=== PATIENT | male | born 1990 | race Two or more races ===

== ENCOUNTER 2016-11-23 11:56 | Emergency (ER) | payer SELFPAY ==
[~2016-11-23] VITALS: Ht 190.5 cm; Wt 113.4 kg
[2016-11-23 12:29] LABS: BASO % 0 % (0-3); EOS % 0 % (0-3); HEMATOCRIT 45.5 % (39.0-53.0); HEMOGLOBIN 15.5 g/dL (13.0-17.5); LYMPH # 1.3 x10^3/uL (1.0-4.8); LYMPH % 20 % (24-48); MEAN CORPUSCULAR HEMOGLOBIN 32 pg (25-35); MEAN CORPUSCULAR HGB CONC 34 g/dL (31-37); MEAN CORPUSCULAR VOLUME 93 fL (79-100); MONO # 0.5 x10^3/uL (0.0-1.1); MONO % 7 % (0-9); NEUT # 4.9 x10^3uL (1.8-7.7); NEUT % 73 % (31-73); PLATELET COUNT 317 x10^3/uL (140-400); RED CELL DISTRIBUTION WIDTH 12.7 % (11.5-14.5); WHITE BLOOD COUNT 6.7 x10^3/uL (4.0-11.0)
[2016-11-23] MEDS ORDERED: IV NORMAL SALINE 1,000ML 1,000 ML IV SCH (12:30)
--- NOTE | 2016-11-23 12:34 | PHYS DOC ---
Adult General Chief Complaint Chief Complaint: NAUSEA/VOMITING HPI HPI Patient is a 26 year old male who presents with complaint of nausea, vomiting, and lightheadedness. Patient states that his symptoms started 3-4 days ago. 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 The patient states that he has been having low-grade fever yesterday and has had persistent lightheadedness and nausea. Patient states that he had a few episodes of vomiting today. Patient does admit that he has been around family members who have had viral gastroenteritis symptoms over the past couple weeks. Patient denies any chest pain, abdominal pain, bloody stools, or diarrhea at this time. Patient denies any significant past medical history. Patient has taken no medications to help with symptoms. Due to worsening symptoms the patient came to the emergency department for evaluation today. Review of Systems Review of Systems Constitutional: Lightheadedness, generalized fatigue, fever [] Eyes: Denies change in visual acuity, redness, or eye pain [] HENT: Denies nasal congestion or sore throat [] Respiratory: Denies cough or shortness of breath [] Cardiovascular: Denies chest pain or edema [] GI: Nausea, vomiting, denies abdominal pain, bloody stools or diarrhea [] : Denies dysuria or hematuria [] Musculoskeletal: Denies back pain or joint pain [] Integument: Denies rash or skin lesions [] Neurologic: Denies headache, focal weakness or sensory changes [] Current Medications Current Medications Current Medications Medications (Trade) Dose Ordered Sig/Yazan Start Time Stop Time Status Last Admin Dose Admin Prochlorperazine Edisylate (Compazine) 10 mg 1X ONCE 11/23/16 12:45 11/23/16 12:46 11/23/16 12:24 10 MG Sodium Chloride 1,000 ml @ 1,000 mls/hr Q1H 11/23/16 12:30 11/23/16 13:29 11/23/16 12:23 1,000 MLS/HR Allergies Allergies Allergies Coded Allergies Type Severity Reaction Last Updated Verified No Known Drug Allergies 11/23/16 No Physical Exam Physical Exam Constitutional: Alert, afebrile, appears mildly anxious. [] HENT: Normocephalic, atraumatic, bilateral external ears normal, oropharynx moist, no oral exudates, nose normal. [] Eyes: PERRLA, EOMI, conjunctiva normal, no discharge. [] Neck: Normal range of motion, no tenderness, supple, no stridor. [] Cardiovascular: Tachycardia, regular rhythm, no murmur [] Lungs & Thorax: Bilateral breath sounds clear to auscultation [] Abdomen: Bowel sounds normal, soft, no tenderness, no masses, no pulsatile masses. [] Skin: Warm, dry, no erythema, no rash. [] Back: No tenderness, no CVA tenderness. [] Extremities: No tenderness, no cyanosis, no clubbing, ROM intact, no edema. [] Neurologic: Alert and oriented X 3, normal motor function, normal sensory function, no focal deficits noted. [] Current Patient Data Vital Signs Vital Signs Date Time Temp Pulse Resp B/P (MAP) Pulse Ox O2 Delivery O2 Flow Rate FiO2 11/23/16 13:53 98 18 139/89 (106) 95 Room Air 11/23/16 11:56 98.2 Lab Results Laboratory Tests Test 11/23/16 12:15 White Blood Count 6.7 x10^3/uL (4.0-11.0) Red Blood Count 4.90 x10^6/uL (4.30-5.70) Hemoglobin 15.5 g/dL (13.0-17.5) Hematocrit 45.5 % (39.0-53.0) Mean Corpuscular Volume 93 fL (79-100) Mean Corpuscular Hemoglobin 32 pg (25-35) Mean Corpuscular Hemoglobin Concent 34 g/dL (31-37) Red Cell Distribution Width 12.7 % (11.5-14.5) Platelet Count 317 x10^3/uL (140-400) Neutrophils (%) (Auto) 73 % (31-73) Lymphocytes (%) (Auto) 20 % (24-48) L Monocytes (%) (Auto) 7 % (0-9) Eosinophils (%) (Auto) 0 % (0-3) Basophils (%) (Auto) 0 % (0-3) Neutrophils # (Auto) 4.9 x10^3uL (1.8-7.7) Lymphocytes # (Auto) 1.3 x10^3/uL (1.0-4.8) Monocytes # (Auto) 0.5 x10^3/uL (0.0-1.1) Eosinophils # (Auto) 0.0 x10^3/uL (0.0-0.7) Basophils # (Auto) 0.0 x10^3/uL (0.0-0.2) EKG EKG Interpreted by me: Heart rate 98, sinus rhythm, normal intervals, normal axis, no acute ST/T-wave abnormalities present [] Radiology/Procedures Radiology/Procedures Not performed [] Course & Med Decision Making Course & Med Decision Making Pertinent Labs and Imaging studies reviewed. (See chart for details) Patient was given IV fluids and Compazine in the emergency department. The patient's lab work was notable for mildly elevated liver enzymes and patient did test positive for marijuana and alcohol in his system. I spoke with the patient as this information was not given initially. Patient did admit to drinking alcohol last night and patient states that he did smoke marijuana one week ago. He states that these are not regular habits and denies that he has problems with alcohol. Patient states that he drinks one drink a day of alcohol which she has done for many years. The patient states that he feels well at this time and would like to go home. Advised patient to follow-up in 3-4 days with his primary doctor for reevaluation. Patient prescribed Zofran for treatment of nausea. Advised return emergency department for any worsening symptoms per the patient was understanding and agreement with treatment plan. [] Dragon Disclaimer Dragon Disclaimer This chart was dictated in whole or in part using Voice Recognition software in a busy, high-work load, and often noisy Emergency Department environment. It may contain unintended and wholly unrecognized errors or omissions. Departure Departure: Impression: Primary Impression: Nausea and vomiting Additional Impression: Dehydration Disposition: 01 HOME, SELF-CARE Condition: IMPROVED Patient Instructions: Dehydration, Adult, Nausea and Vomiting Additional Instructions: Follow-up with your primary doctor in 3-4 days for reevaluation. Return to the emergency department for any worsening symptoms. Scripts Ondansetron (ZOFRAN ODT) 4 Mg Tab.rapdis 1 TAB SL Q8HRS Y for NAUSEA/VOMITING, #15 TAB Prov: TAYLOR POOLE MD 11/23/16 Problem Qualifiers Primary Impression: Nausea and vomiting Vomiting type: unspecified Vomiting Intractability: non-intractable Qualified Codes: R11.2 - Nausea with vomiting, unspecified TAYLOR POOLE MD Nov 23, 2016 12:34
[2016-11-23] MEDS ORDERED: PROCHLORPERAZINE 10 MG/2 ML VIAL. IV ONE (12:45)
[2016-11-23 12:52] LABS: ALBUMIN 4.4 g/dL (3.4-5.0); ALBUMIN/GLOBULIN RATIO 1.1 (1.0-1.7); CALCIUM 9.2 mg/dL (8.5-10.1); CREATININE 1.5 mg/dL (0.7-1.3); GFR 56.1; POTASSIUM 4.4 mmol/L (3.5-5.1); TOTAL BILIRUBIN 0.8 mg/dL (0.2-1.0); TOTAL PROTEIN 8.4 g/dL (6.4-8.2)
[2016-11-23 13:53] VITALS: BP 139/89
[2016-11-23 14:00] LABS: AMPHETAMINE/METHAMPHETAMINE NEG (NEG); BARBITURATES NEG (NEG); BENZODIAZEPINES NEG (NEG); CANNABINOIDS POS (NEG); COCAINE NEG (NEG); METHADONE NEG (NEG); OPIATES NEG (NEG); PHENCYCLIDINE NEG (NEG)
[2016-11-23 14:05] LABS: BACTERIA,URINE 0 /HPF (0-FEW); BILIRUBIN,URINE NEG (NEG); CLARITY,URINE HAZY; COLOR,URINE AMBER; GLUCOSE,URINE NEG (NEG); HYALINE CASTS, URINE OCC /HPF; NITRITE,URINE NEG (NEG); RBC,URINE 0 /HPF (0-2); SQUAMOUS EPITHELIAL CELL,UR OCC /LPF; UROBILINOGEN,URINE 0.2 mg/dL (0.2 mg/dL); WBC,URINE 0 /HPF (0-4)
[2016-11-23] MEDS ORDERED: ONDA4TAB10 SL (14:20)
--- NOTE | 2016-11-23 15:09 | EKG ---
[address] [address] Test Date: 2016-11-23 Test Time: 12:36:23 Pat Name: FIONA PINA Department: Room: Gender: M Physician Practice Consultant: SUMA : 1990 Requested By: TAYLOR POOLE Order Number: [id number] Reading MD: Marco Singleton Measurements Intervals [place] Rate: 98 P: 39 IA: 150 QRS: 26 QRSD: 82 T: 23 QT: 342 QTc: 438 Interpretive Statements SINUS RHYTHM Electronically Signed On 11-24-2016 8:58:01 CDT by Marco Singleton
== END 2016-11-23 14:27 | disposition home or self-care (01) ==
LOC: ER 11:56
DX: E86.0 Dehydration (principal); R50.9 Fever, unspecified
CPT/HCPCS: 36415; 80053; 80307; 81001; 83690; 85027; 93005; 96361; 96374; 99285; J0780; G0479; J7030

== ENCOUNTER 2017-06-20 05:30 | Emergency (ER) | payer OTHER ==
[~2017-06-20] VITALS: Ht 190.5 cm; Wt 115.4 kg
[~2017-06-20 05:30] MED LIST: ONDA4TAB10 SL
--- NOTE | 2017-06-20 06:17 | PHYS DOC ---
Past History Past Medical History: GERD, Other Past Surgical History: Other Alcohol Use: Occasionally Additional Alcohol Information: "weekly" Drug Use: None Adult General Chief Complaint Chief Complaint: NAUSEA/VOMITING/DIARRHEA HPI HPI Patient is a 26 year old male who presents with nausea vomiting diarrhea. He states he saw blood in his stools last night. He did have several episodes approximately 3 loose stools prior to that. He also vomited this morning he said it was pink in color. He does also complain of abdominal pain this been there for the last several days. It is periumbilical affect 3-4 days ago he saw his primary care physician was told he had an umbilical hernia. He denies any history of surgeries. He denies testicular pain or dysuria. He was given stool softener and acid aneta. He states he has a aneta that he was prescribed/ given samples for has helped his GERD type symptoms. He does have a follow-up appointment with Dr. Templeton on . He states he thinks he might have hemorrhoids also. Review of Systems Review of Systems Constitutional: Denies fever or chills [] Eyes: Denies change in visual acuity, redness, or eye pain [] HENT: Denies nasal congestion or sore throat [] Respiratory: Denies cough or shortness of breath [] Cardiovascular: No additional information not addressed in HPI [] GI: Positive for abdominal pain, nausea, vomiting, bloody stool[] : Denies dysuria or hematuria [] Musculoskeletal: Denies back pain or joint pain [] Integument: Denies rash or skin lesions [] Neurologic: Denies headache, focal weakness or sensory changes [] Endocrine: Denies polyuria or polydipsia [] All other systems were reviewed and found to be within normal limits, except as documented in this note. Allergies Allergies Allergies Coded Allergies Type Severity Reaction Last Updated Verified No Known Drug Allergies 11/23/16 No Physical Exam Physical Exam Constitutional: Well developed, well nourished, no acute distress, non-toxic appearance. [] HENT: Normocephalic, atraumatic, bilateral external ears normal, oropharynx moist, no oral exudates, nose normal. [] Eyes: PERRLA, EOMI, conjunctiva normal, no discharge. [] Neck: Normal range of motion, no tenderness, supple, no stridor. [] Cardiovascular:Heart rate regular rhythm, no murmur [] Lungs & Thorax: Bilateral breath sounds clear to auscultation [] Abdomen/rectal exam: Bowel sounds high-pitched, mild tender palpation. Tender to palpation around the umbilicus with no rebound or guarding, no masses, no pulsatile masses. 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 [] Back: No tenderness, no CVA tenderness. [] Extremities: No tenderness, no cyanosis, no clubbing, ROM intact, no edema. [] Neurologic: Alert and oriented X 3, normal motor function, normal sensory function, no focal deficits noted. [] Psychologic: Affect normal, judgement normal, mood normal. [] Current Patient Data Vital Signs Vital Signs Date Time Temp Pulse Resp B/P (MAP) Pulse Ox O2 Delivery O2 Flow Rate FiO2 06/20/17 05:45 98.2 94 20 97 Room Air EKG EKG [] Radiology/Procedures Radiology/[place] [id number] IMAGING REPORT Signed PATIENT: FIONA PINA ACCOUNT: [id number] : 1990 LOCATION: ER AGE: 26 SEX: M EXAM STATUS: REG ER ORD. PHYSICIAN: LAUREN ZAMUDIO MD REASON: abd pain PROCEDURE: CT ABD PELV W/ORAL&IV CONTRAST CT study of the abdomen and pelvis with contrast Clinical indications: Abdominal pain in the region of the umbilicus for 2 weeks. Nausea and vomiting. Technique: After IV infusion of 70 cc of Omnipaque 300, helical CT scanning of the abdomen and pelvis was performed. GI contrast was administered per mouth. PQRS Compliance Statement: One or more of the following individualized dose reduction techniques were utilized for this examination: 1. Automated exposure control 2. Adjustment of the mA and/or kV according to patient size 3. Use of iterative reconstruction technique Comparison: None available. Findings: The liver and spleen and pancreas and gallbladder are normal. No adrenal mass is evident. No renal mass is seen. No urinary tract stone is evident. Mild dilatation of both central renal collecting systems and both ureters is seen. This is secondary to urinary bladder distention. Urinary bladder is distended measuring up to 18 cm. The urinary bladder wall is smooth. No focal aneurysmal dilatation of the abdominal aorta is seen. No enlarged abdominal or pelvic lymphadenopathy is seen. The appendix and terminal ileum are unremarkable. No obstructive bowel pattern is seen. A small hiatal hernia is present. No free air or free fluid or mesenteric edema is seen. No osteolytic process is seen. No lung base consolidation is seen. IMPRESSION: Significant urinary bladder distention. No other acute abnormality of the abdomen and pelvis is seen. Small hiatal hernia. DICTATED AND SIGNED BY: GRETA IRVIN MD DATE: 06/20/17 0831 CC: LAUREN ZAMUDIO MD; PCP,NO ~ Impressions: Abdominal pain Nausea vomiting diarrhea Course & Med Decision Making Course & Med Decision Making Pertinent Labs and Imaging studies reviewed. (See chart for details) Patient's having some abdominal discomfort however his labs do not show any acute abnormalities. Urine does show alcohol ingestion. I've talked him about cutting back or eliminating alcohol completely especially when he is not feeling well. He was able to urinate we did do a bladder scan which showed 299 ML's, after he urinated about an hour ago. CT scan didn't show any acute abnormalities. He has a follow-up appointment on with general surgery. He is being discharged with ODT Zofran and return precautions. Dragon Disclaimer Dragon Disclaimer This electronic medical record was generated, in whole or in part, using a voice recognition dictation system. Departure Departure: Impression: Primary Impression: Nausea vomiting and diarrhea Disposition: HOME, SELF-CARE Condition: STABLE Referrals: PCP,NO (PCP) Patient Instructions: Nausea and Vomiting Additional Instructions: His Hemoccult did not show any blood in her stool, and you vomited today and it didn't have any blood in her vomit. The CAT scan did not show any signs of hernia or other abnormalities. You received IV fluids and antinausea meds. Your being discharged home with antinausea meds. Your follow-up appointment with Dr. Templeton. Please keep that appointment. Return back to ER for severe pain, uncontrolled nausea vomiting, high fevers, or other concerns. You should cut down the amount of alcohol you drink especially not feeling well. You should also avoid any illicit drugs such as marijuana as this can make abdominal discomfort and nausea vomiting worse. Scripts Ondansetron (ZOFRAN ODT) 4 Mg Tab.rapdis 1 TAB SL Q8HRS, #8 TAB Prov: LAUREN ZAMUDIO MD 06/20/17 LAUREN ZAMUDIO MD Jun 20, 2017 06:17
[2017-06-20] MEDS ORDERED: ONDANSETRON PF 4 MG/2 ML VIAL. IV ONE ×2 (06:30→09:00)
[2017-06-20] MEDS ORDERED: MORPHINE SULFATE 2 MG/ML DISP.SYRIN. IV/SQ PRN (06:30)
[2017-06-20] MEDS ORDERED: IV NORMAL SALINE 1,000ML 1,000 ML IV SCH (06:30)
[2017-06-20 07:02] LABS: BASO % 1 % (0-3); EOS # 0.2 x10^3/uL (0.0-0.7); EOS % 5 % (0-3); HEMATOCRIT 42.6 % (39.0-53.0); HEMOGLOBIN 14.5 g/dL (13.0-17.5); LYMPH # 1.7 x10^3/uL (1.0-4.8); LYMPH % 39 % (24-48); MEAN CORPUSCULAR HEMOGLOBIN 30 pg (25-35); MEAN CORPUSCULAR HGB CONC 34 g/dL (31-37); MEAN CORPUSCULAR VOLUME 88 fL (79-100); MONO # 0.3 x10^3/uL (0.0-1.1); MONO % 7 % (0-9); NEUT # 2.2 x10^3uL (1.8-7.7); NEUT % 50 % (31-73); PLATELET COUNT 280 x10^3/uL (140-400); RED BLOOD COUNT 4.82 x10^6/uL (4.30-5.70); RED CELL DISTRIBUTION WIDTH 13.1 % (11.5-14.5); WHITE BLOOD COUNT 4.5 x10^3/uL (4.0-11.0)
[2017-06-20 07:04] LABS: FECAL OB PT NEGATIVE (NEG)
[2017-06-20 07:11] LABS: ALBUMIN 3.6 g/dL (3.4-5.0); CALCIUM 8.7 mg/dL (8.5-10.1); CREATININE 1.3 mg/dL (0.7-1.3); DIRECT BILIRUBIN 0.1 mg/dL (0.0-0.2); GFR 66.2; POTASSIUM 4.3 mmol/L (3.5-5.1); TOTAL BILIRUBIN 0.4 mg/dL (0.2-1.0); TOTAL PROTEIN 7.2 g/dL (6.4-8.2)
[2017-06-20] MEDS ORDERED: IOHEXOL 300 MG/ML 75 ML VIAL. IV ONE (08:00)
[2017-06-20] MEDS ORDERED: IOHEXOL 240 MG/ML 50ML VIAL. PO ONE (08:00)
--- NOTE | 2017-06-20 08:44 | RAD ---
CT study of the abdomen and pelvis with contrast Clinical indications: Abdominal pain in the region of the umbilicus for 2 weeks. Nausea and vomiting. Technique: After IV infusion of 70 cc of Omnipaque 300, helical CT scanning of the abdomen and pelvis was performed. GI contrast was administered per mouth. PQRS Compliance Statement: One or more of the following individualized dose reduction techniques were utilized for this examination: 1. Automated exposure control 2. Adjustment of the mA and/or kV according to patient size 3. Use of iterative reconstruction technique Comparison: None available. Findings: The liver and spleen and pancreas and gallbladder are normal. No adrenal mass is evident. No renal mass is seen. No urinary tract stone is evident. Mild dilatation of both central renal collecting systems and both ureters is seen. This is secondary to urinary bladder distention. Urinary bladder is distended measuring up to 18 cm. The urinary bladder wall is smooth. No focal aneurysmal dilatation of the abdominal aorta is seen. No enlarged abdominal or pelvic lymphadenopathy is seen. The appendix and terminal ileum are unremarkable. No obstructive bowel pattern is seen. A small hiatal hernia is present. No free air or free fluid or mesenteric edema is seen. No osteolytic process is seen. No lung base consolidation is seen. IMPRESSION: Significant urinary bladder distention. No other acute abnormality of the abdomen and pelvis is seen. Small hiatal hernia.
[2017-06-20 08:45] LABS: BILIRUBIN,URINE NEG (NEG); CLARITY,URINE CLEAR; COLOR,URINE YELLOW; GLUCOSE,URINE NEG (NEG)
[2017-06-20 08:46] LABS: AMPHETAMINE/METHAMPHETAMINE NEG (NEG); BACTERIA,URINE 0 /HPF (0-FEW); BARBITURATES NEG (NEG); BENZODIAZEPINES NEG (NEG); CANNABINOIDS NEG (NEG); COCAINE NEG (NEG); METHADONE NEG (NEG); NITRITE,URINE NEG (NEG); OPIATES POS (NEG); PHENCYCLIDINE NEG (NEG); RBC,URINE OCC /HPF (0-2); SQUAMOUS EPITHELIAL CELL,UR OCC /LPF; UROBILINOGEN,URINE 0.2 mg/dL (0.2 mg/dL)
[2017-06-20] MEDS ORDERED: ONDA4TAB10 SL (09:19)
[2017-06-20 09:24] VITALS: BP 122/72
== END 2017-06-20 09:24 | disposition home or self-care (01) ==
LOC: ER 05:30
DX: R11.2 Nausea with vomiting, unspecified (principal); R19.7 Diarrhea, unspecified; K21.9 Gastro-esophageal reflux disease without esophagitis
CPT/HCPCS: 36415; 74177; 80048; 80076; 80307; 81001; 82274; 83690; 85025; 85610; 85730; 96361; 96374; 96375; 96376; 99285; J2270; J2405; Q9966; Q9967; G0479; J7030

== ENCOUNTER 2018-11-27 03:52 | Emergency (ER) | payer SELFPAY ==
[~2018-11-27] VITALS: Ht 188 cm; Wt 108.9 kg
[2018-11-27 04:00] VITALS: BP 141/82
[2018-11-27] MEDS ORDERED: MELO7.5T29 PO (04:10)
[2018-11-27] MEDS ORDERED: ORPH-16 PO (04:10)
--- NOTE | 2018-11-27 04:10 | PHYS DOC ---
Past History Past Medical History: No Pertinent History, GERD, Other Past Surgical History: No Surgical History, Other Smoking: Cigarettes Alcohol Use: Occasionally Drug Use: None Adult General HPI HPI Patient is a 28-year-old male presents with low back pain that started yesterday. Increased pain with movement. Improved pain with narcotic pain medicine prescribed for his [id number] that she shared with him as well as some muscle relaxants. No loss of bowel or bladder control. Patient has no personal history of cancer. Denies IV or injection drug use. No fever. Pain is moderate to severe. 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 No radiation of the discomfort. [] Review of Systems Review of Systems Constitutional: Denies fever or chills [] Eyes: Denies change in visual acuity, redness, or eye pain [] HENT: Denies nasal congestion or sore throat [] Respiratory: Denies cough or shortness of breath [] Cardiovascular: No chest pain or palpitations[] GI: Denies abdominal pain, nausea, vomiting, bloody stools or diarrhea [] : Denies dysuria or hematuria [] Musculoskeletal: See history of present illness[] Integument: Denies rash or skin lesions [] Neurologic: Denies headache, focal weakness or sensory changes [] Endocrine: Denies polyuria or polydipsia [] All other systems were reviewed and found to be within normal limits, except as documented in this note. Allergies Allergies Allergies Coded Allergies Type Severity Reaction Last Updated Verified No Known Drug Allergies 11/23/16 No Physical Exam Physical Exam Constitutional: Well developed, well nourished, no acute distress, non-toxic appearance. [] HENT: Normocephalic, atraumatic, bilateral external ears normal, oropharynx moist, no oral exudates, nose normal. [] Eyes: PERRLA, EOMI, conjunctiva normal, no discharge. [] Neck: Normal range of motion, no tenderness, supple, no stridor. [] Cardiovascular:Heart rate regular rhythm, no murmur [] Lungs & Thorax: Bilateral breath sounds clear to auscultation [] Abdomen: Bowel sounds normal, soft, no tenderness, no masses, no pulsatile masses. [] Skin: Warm, dry, no erythema, no rash. [] Back: Tenderness to palpation lower lumbar paraspinal musculature/SI joint region. Worse on the right side. Decreased active range of motion secondary to pain in the forward bending. Normal gait. no CVA tenderness. [] Extremities: No tenderness, no cyanosis, no clubbing, ROM intact, no edema. [] Neurologic: Alert and oriented X 3, normal motor function, normal sensory function, no focal deficits noted. [] Psychologic: Affect normal, judgement normal, mood normal. [] EKG EKG [] Radiology/Procedures Radiology/Procedures [] Course & Med Decision Making Course & Med Decision Making Pertinent Labs and Imaging studies reviewed. (See chart for details) Medical decision making: Patient has no red flag features indicating a need for imaging at this time. We will treat with NSAIDs and muscle relaxants. No evidence of cauda equina syndrome. No evidence of meningitis or encephalitis.[] Dragon Disclaimer Dragon Disclaimer This electronic medical record was generated, in whole or in part, using a voice recognition dictation system. Departure Departure: Impression: Primary Impression: Acute low back pain Disposition: HOME, SELF-CARE Condition: IMPROVED Referrals: [facility] (PCP) Patient Instructions: Low Back Strain with [facility] Additional Instructions: Follow-up with your regular doctor in 2 days. If you do not have regular doctor list of local clinics will be provided for you. Return to the ER if worsening pain, loss of bowel or bladder control, or any other concerns. Scripts Orphenadrine Citrate (ORPHENADRINE CITRATE) 100 Mg Tablet.er 100 MG PO BID for BACK PAIN, #20 TAB.SR Prov: GULSHAN CHAMORRO DO 11/27/18 Meloxicam (MELOXICAM) 7.5 Mg Tablet 7.5 MG PO DAILY for PAIN, #20 TAB Prov: GULSHAN CHAMORRO DO 11/27/18 Problem Qualifiers Primary Impression: Acute low back pain Back pain laterality: bilateral Sciatica presence: without sciatica Qualified Codes: M54.5 - Low back pain GULSHAN CHAMORRO DO Nov 27, 2018 04:10
[2018-11-27] MEDS ORDERED: KETOROLAC 15 MG/ML VIAL. IM ONE (04:15)
== END 2018-11-27 04:27 | disposition home or self-care (01) ==
LOC: ER 03:52
DX: M54.5 Low back pain (principal); K21.9 Gastro-esophageal reflux disease without esophagitis; F17.210 Nicotine dependence, cigarettes, uncomplicated
CPT/HCPCS: 96372; 99283; J1885